=== PATIENT | female | born 1985 | race Caucasian/White ===

== ENCOUNTER 2018-06-08 21:45 | Emergency (ER) | payer OTHER, SELFPAY ==
[2018-06-08] MEDS ORDERED: Sodium Chloride 0.9% 1,000 ML IV ONE ×2 (21:57→22:45)
--- NOTE | 2018-06-08 22:00 | C.PDOC ---
History Of Present Illness 32 year old female presents to the ER with a complaint of nausea, bilious vomiting, and diarrhea, associated with mild crampy abdominal pain. Patient states she was at a barbeque and after 3 hour began having the symptoms. She reports drinking a glass of wine but is not intoxicated. Denies fever or chills. Time Seen by Provider: 06/08/18 21:54 Chief Complaint (Nursing): Abdominal Pain History Per: Patient History/Exam Limitations: no limitations Onset/Duration Of Symptoms: Hrs Current Symptoms Are (Timing): Still Present Quality Of Discomfort: Cramping Associated Symptoms: Nausea, Vomiting, Diarrhea. denies: Chills Exacerbating Factors: None Alleviating Factors: None Recent travel outside of the [place]: No Past Medical History Reviewed: Historical Data, Nursing Documentation, Vital Signs Vital Signs: Last Vital Signs Temp 98.4 F 06/08/18 21:53 Pulse 91 H 06/08/18 21:53 Resp 16 06/08/18 21:53 BP 112/80 06/08/18 21:53 Pulse Ox 98 06/08/18 22:04 - Medical History PMH: Kidney Stones Family History: States: Unknown Family Hx - Social History Hx Alcohol Use: No Hx Substance Use: No - Immunization History Hx Tetanus Toxoid Vaccination: No Hx Influenza Vaccination: Yes Hx Pneumococcal Vaccination: No Review Of Systems Constitutional: Negative for: Fever, Chills Cardiovascular: Negative for: Chest Pain, Palpitations Respiratory: Negative for: Cough, Shortness of Breath Gastrointestinal: Positive for: Nausea, Vomiting, Abdominal Pain, Diarrhea Physical Exam - Physical Exam Appears: Non-toxic Skin: Normal Color, Warm, Dry Head: Atraumatic, Normacephalic Eye(s): bilateral: Normal Inspection Oral Mucosa: Moist Neck: Normal, Supple Chest: Symmetrical, No Tenderness Cardiovascular: Rhythm Regular Respiratory: Normal Breath Sounds, No Rales, No Rhonchi, No Wheezing Gastrointestinal/Abdominal: Soft, No Tenderness Neurological/Psych: Oriented x3, Normal Speech ED Course And Treatment - Laboratory Results Result Diagrams: 06/08/18 22:21 06/08/18 22:21 Lab Interpretation: Abnormal (Elevated WBC with left shift, BUN 22) O2 Sat by Pulse Oximetry: 98 (Room air) Pulse Ox Interpretation: Normal Progress Note: Blood work and urinalysis ordered. IV fluids and zofran administered. Reevaluation Time: 23:31 Reassessment Condition: Improved Disposition Counseled Patient/Family Regarding: Studies Performed, Diagnosis, Need For Followup, Rx Given - Disposition Referrals: Clinic,Med Surg [Primary Care Provider] - Disposition: HOME/ ROUTINE Disposition Time: 23:37 Condition: IMPROVED Additional Instructions: Keep your diet bland and advance as tolerated. Prescriptions: Ondansetron ODT [Zofran ODT] 1 odt PO QID PRN #10 odt PRN Reason: Nausea/Vomiting Instructions: Nausea and Vomiting, Adult (DC), Diarrhea in Adolescents and Adults, [place] Diet Forms: [employer] ([place]oc[place]) - Clinical Impression Clinical Impression: Vomiting, Diarrhea, Nausea - Scribe Statement The provider has reviewed the documentation as recorded by the Scribnichloe Chamorro All medical record entries made by the Abdielibnichole were at my direction and personally dictated by me. I have reviewed the chart and agree that the record accurately reflects my personal performance of the history, physical exam, medical decision making, and the department course for this patient. I have also personally directed, reviewed, and agree with the discharge instructions and disposition.
[2018-06-08] MEDS ORDERED: Sodium Chloride 0.9% 1,000 ML ONE ×2 (22:07→23:41)
[2018-06-08 22:29] LABS: BASO % 0.2 % (0.0-2.0); EOS % 0.7 % (0.0-4.0); HEMOGLOBIN 14.2 g/dL (11.0-16.0); LYMPH % 7.7 % (20.0-40.0); MEAN CELL VOLUME 86.8 fL (81.0-99.0); MEAN CORPUSCULAR HEMOGLOBIN 28.5 pg (27.0-31.0); MEAN CORPUSCULAR HGB CONC 32.8 g/dL (33.0-37.0); MEAN PLATELET VOLUME 9.1 fL (7.2-11.7); MONO % 6.7 % (0.0-10.0); NEUT % 84.7 % (50.0-75.0); PLATELET COUNT 355 K/uL (130-400); RBC 4.97 Mil/uL (3.80-5.20); RED CELL DISTRIBUTION WIDTH 13.4 % (11.5-14.5)
[2018-06-08 22:30] LABS: EOS # 0.1 K/uL (0.0-0.7); LYMPH # 1.5 K/uL (1.0-4.3); MONO # 1.3 K/uL (0.0-0.8); NEUT # 16.1 K/uL (1.8-7.0)
[2018-06-08 22:39] LABS: ALB/GLOB RATIO 1.3 (1.0-2.1); ALBUMIN 4.7 g/dL (3.5-5.0); ALT/SGPT 26 U/L (9-52); AST/SGOT 22 U/L (14-36); BLOOD UREA NITROGEN 22 mg/dL (7-17); CALCIUM 9.9 mg/dl (8.6-10.4); GFR NON-AFRICAN AMERICAN > 60; LIPASE 73 U/L (23-300)
[2018-06-08 22:54] LABS: EOSINOPHIL 1 % (0-4); LARGE PLATELETS PRESENT; LYMPHOCYTE 8 % (20-40); MONOCYTE 5 % (0-10); NEUTROPHIL 86 % (50-75); OVALOCYTES SLIGHT; PLATELET ESTIMATE NORMAL (NORMAL); POIKILOCYTOSIS SLIGHT; TOTAL CELLS COUNTED 100
[2018-06-08 23:58] LABS: HCG,QUALITATIVE URINE NEGATIVE (NEGATIVE)
[2018-06-09] LABS: SQUAMOUS EPITHIAL 6 /hpf (0-5); URINE BACTERIA OCC (<OCC); URINE BILIRUBIN NEGATIVE (NEGATIVE); URINE BLOOD 3+ (NEGATIVE); URINE CLARITY Hazy (Clear); URINE COLOR Yellow (YELLOW); URINE GLUCOSE (UA) NORMAL (Normal); URINE LEUKOCYTE ESTERASE NEG Leu/uL (Negative); URINE PROTEIN NEGATIVE (NEGATIVE); URINE UROBILINOGEN NORMAL mg/dL (0.2-1.0)
[2018-06-09 01:07] VITALS: BP 106/70; PULSE 86; RESP 14; TEMP 98; O2SAT 99
== END 2018-06-09 01:07 | disposition home or self-care (01) ==
LOC: C.ER 21:45 → SUPCPDRO 21:45 → C.ER 06-09 01:07
DX: R11.2 Nausea with vomiting, unspecified (principal); R19.7 Diarrhea, unspecified
CPT/HCPCS: 80053; 81001; 83690; 84703; 85025; 96361; 96374; 99284; J2405; J7030